=== PATIENT | female | born 1960 | race African-American/Black ===

== ENCOUNTER 2023-11-28 17:55 | Emergency (ER) | payer MEDICAID, OTHER ==
[~2023-11-28] VITALS: Ht 162.6 cm; Wt 81.0 kg
[2023-11-28 18:07] VITALS: O2SAT 99
[2023-11-28 19:12] LABS: BASOPHILS % 0.2 % (0.0-2.0); DIFFERENTIAL COMMENT 0; EOSINOPHILS % 1.1 % (0.0-5.0); HEMATOCRIT. 38.9 % (36.0-48.0); HEMOGLOBIN. 13.1 g/dL (12.0-16.0); LYMPHOCYTES % 29.4 % (20.0-50.0); MEAN CORPUSCULAR HEMOGLOBIN 24.7 pg (28.0-32.0); MEAN CORPUSCULAR HGB CONC 33.7 g/dL (31.0-37.0); MEAN CORPUSCULAR VOLUME 73.3 fL (81.0-99.0); MEAN PLATELET VOLUME 9.3 fl (7.4-10.4); MONOCYTES % 8.4 % (2.0-8.0); NEUTROPHILS % 60.9 % (40.0-76.0); PLATELET 341 x1000/uL (130-400); RED BLOOD CELL COUNT 5.31 mill/uL (4.2-5.4); RED CELL DISTRIBUTION WIDTH 16.2 % (11.6-14.6); WHITE BLOOD COUNT 7.9 x1000/uL (4.5-11.0)
[2023-11-28 19:26] LABS: ALANINE AMINOTRANSFERASE 17 IU/L (10-49); ALBUMIN 4.4 g/dL (3.2-4.8); ASPARTATE AMINOTRANSFERASE 12 IU/L (<34); BILIRUBIN TOTAL 0.3 mg/dL (0.1-1.0); CARBON DIOXIDE 27 mEq/L (21-32); CHLORIDE 98 mEq/L (98-107); CREATININE 0.8 mg/dL (0.6-1.0); GLUCOSE 187 mg/dL (70-105); POTASSIUM 4.1 mEq/L (3.5-5.1); SODIUM 134 mEq/L (136-145); UREA NITROGEN BLOOD 19 mg/dL (9-23)
[2023-11-28 20:21] VITALS: BP 135/59; PULSE 74; RESP 17; TEMP 98
== END 2023-11-28 20:23 | disposition home or self-care (01) ==
LOC: ER 18:12
DX: R00.2 Palpitations (principal); E11.9 Type 2 diabetes mellitus without complications; I10 Essential (primary) hypertension; Z90.710 Acquired absence of both cervix and uterus
CPT/HCPCS: 36415; 80053; 84443; 85025; 93005; 99284